=== PATIENT | male | born 1950 | race Hispanic/Latino ===

== ENCOUNTER 2017-07-25 03:23 | Emergency (ER) | payer MEDICARE ==
[2017-07-25] MEDS ORDERED: Clindamycin/D5W 900 mg/50 ml Premix Bag ONE (05:16)
[2017-07-25] MEDS ORDERED: Lidocaine 1% w/Epinephrine 1:100K 20 ML VIAL ONE (05:16)
== END 2017-07-25 06:37 | disposition home or self-care (01) ==
LOC: ERS 03:23
DX: L72.3 Sebaceous cyst (principal); I10 Essential (primary) hypertension; E11.9 Type 2 diabetes mellitus without complications
CPT/HCPCS: 10060; 96365; J2001; J3490

== ENCOUNTER 2017-11-20 00:09 | Emergency (ER) | payer MEDICARE | END 2017-11-20 00:33 | disposition home or self-care (01) | LOC: ERS 00:09 | DX: S01.311A Laceration without foreign body of right ear, initial encounter (principal); H60.11 Cellulitis of right external ear; E11.9 Type 2 diabetes mellitus without complications; I10 Essential (primary) hypertension; Z79.84 Long term (current) use of oral hypoglycemic drugs; Z79.899 Other long term (current) drug therapy; W26.9XXA Contact with unspecified sharp object(s), initial encounter | CPT/HCPCS: 99282 ==

== ENCOUNTER 2019-10-07 22:07 | Inpatient (IN) | payer MEDICARE ==
[~2019-10-07 22:07] MED LIST: Heparin 1,000 UNITS/ML VIAL ONE
[2019-10-07] MEDS ORDERED: Vancomycin 1 GM/200 ML BAG ONE (22:32)
[2019-10-07] MEDS ORDERED: Morphine 4 MG/ML VIAL ONE (22:32)
[2019-10-07] MEDS ORDERED: Ondansetron PF 4 MG/2 ML Vial ONE (22:32)
[2019-10-07] MEDS ORDERED: Cefepime 2 GM VIAL ONE (22:32)
[2019-10-07 23:09] LABS: Hemoglobin 10.6 g/dL (14.0-18.0); Mean Corpuscular HGB CONC 31.6 g/dL (32.0-36.0); Mean Corpuscular Hemoglobin 25.7 pg (27.0-31.0); Mean Corpuscular Volume 81.6 fL (78.0-98.0); Mean Platelet Volume 7.2 fL (7.4-10.4); Platelet Count 319 thou/uL (130-400); RBC Distribution Width 15.5 % (11.5-14.5); Red Blood Cell (RBC) Count 4.11 mill/uL (4.70-6.10); White Blood Cell (WBC) Count 23.5 thou/uL (4.8-10.8)
[2019-10-07 23:11] LABS: ALT (SGPT) 12 U/L (8-55); AST (SGOT) 13 U/L (5-34); Albumin 2.6 g/dL (3.4-4.8); Alkaline Phosphatase 183 U/L (40-110); Anion Gap 20 mmol/L (10-20); BUN (Urea Nitrogen) 63 mg/dL (8.4-25.7); Bilirubin, Total 2.8 mg/dL (0.2-1.2); Calc. Creatinine Clearance 0 mL/min (70-130); Calcium 8.4 mg/dL (7.8-10.44); Carbon Dioxide 28 mmol/L (23-31); Chloride 91 mmol/L (98-107); Estimated GFR-MDRD 38; Glucose 219 mg/dL (80-115); Potassium 3.5 mmol/L (3.5-5.1); Protein, Total 6.6 g/dL (5.8-8.1); Sodium 135 mmol/L (136-145)
[2019-10-07 23:23] LABS: Band 33 % (5-11); Lymphocytes 2 % (21-51); MDiff Complete? YES; Metamyelocyte 1 % (0-0); Neutrophil 64 % (42-75); Platelet Morphology Comment Appears Adequate
[2019-10-07] MEDS ORDERED: Dextrose 5% in Water 1,000 ML IV PRN (23:38)
[2019-10-07] MEDS ORDERED: Dextrose 50% Abboject 50 ML SYRINGE SLOW IVP PRN (23:38)
--- NOTE | 2019-10-07 23:47 | RAD ---
PORTABLE CHEST: 10/07/19 HISTORY: Fever. Heart size is within normal limits. There are atherosclerotic changes of the aorta. The lungs are mariana ar of any infiltrates. IMPRESSION: No active intrathoracic disease. POS: YON
--- NOTE | 2019-10-07 23:47 | RAD ---
LEFT FOOT THREE VIEWS: 10/07/19 HISTORY: Diabetic wound to foot. There is a wound present on the plantar aspect of the calcaneus. There appears to be some air tracki ng in the soft tissues along the lateral side of the fifth metatarsal. I do not see any definitive ev idence for osteomyelitis. IMPRESSION: Soft tissue swelling and wound on the plantar aspect of the foot. Some air is seen within the soft ti ssues along the lateral side of the foot at the level of the fifth metatarsal. POS: YON
[2019-10-07] MEDS ORDERED: Ondansetron PF 4 MG/2 ML Vial IVP PRN (23:49)
--- NOTE | 2019-10-08 00:45 | HP ---
CHIEF COMPLAINT: Back pain. HISTORY OF PRESENT ILLNESS: Mr. Laughlin is a 69-year-old male, with past medical history of diabetes mellitus, hypertension, and hyperlipidemia, presented to the emergency room with low back pain. This started last week. Patient was seen at [facility] three days ago for the same complaint and was diagnosed with muscle strain. Patient also stated that he has a diabetic wound to the left foot, which was present for the last 3 months. He has a Wound Care come to his house 3 times per week and they put a new dressing and on his wound yesterday. Patient denies fever, nausea, vomiting, chills, or shortness of breath. Workup in the emergency room,0 patient had a foul-smelling deep wounds, mainly involving the left foot 11 x 4 cm with surrounding erythema of the left foot and lower leg. Also, he has some redness over the right foot on the right leg. Lab work, patient was found to have leukocytosis with WBC count of 23,000 with 33 bands. Patient also was found to have elevated creatinine with a creatinine of 1.78. ESR is elevated at 110. CRP is elevated at 37. Septic workup in the emergency room, including blood cultures were done in the ED. Patient was started on IV antibiotics. Patient is being admitted to hospital for further management. PAST MEDICAL HISTORY: As mentioned above in history of present illness. SURGICAL HISTORY: Lesions removed from the head. SOCIAL HISTORY: Denies smoking, alcohol drinking, or drug abuse. FAMILY HISTORY: Mother had diabetes mellitus. ALLERGIES: ALLERGIC TO CLINDAMYCIN. HOME MEDICATIONS: Please see home medication reconciliation form for updated medications. REVIEW OF SYSTEMS: Review of 14 systems negative, except what is mentioned in history of present illness. PHYSICAL EXAMINATION: GENERAL: Patient is awake and alert, in mild distress. VITAL SIGNS: Blood pressure 140/78, respiratory rate is 24, temperature is 97.7, and oxygen saturation is 94% on room air. HEAD AND NECK: Normocephalic and atraumatic. Neck is supple. No JVD. CHEST: Fair bilateral air entry. HEART: S1, S2. Regular. ABDOMEN: Soft, nontender. Bowel sounds present. NEUROLOGIC: Awake, alert, and oriented x3. No focal deficits. PSYCH: Unable to assess. EXTREMITIES: Deep ulcer/wound, left foot plantar aspect 11 x 3 cm with surrounding erythema. Also, left lower leg erythema and right leg erythema in the right foot. GENITOURINARY: No suprapubic tenderness. No flank tenderness. SKIN: As mentioned above in the extremities description. LABORATORIES: As in HPI. IMAGING: X ray of the foot showed soft tissue swelling and wound on the plantar aspect of the foot. Some air is seen within the soft tissues along the lateral side of the foot and at the level of the fifth metatarsal. ASSESSMENT: 1. Sepsis. 2. Diabetic foot ulcer, infected. 3. Cellulitis of both legs. 4. Back pain, which was worked up in [facility] and was diagnosed with muscle strain. 5. Hypertension. 6. Hyperlipidemia. 7. Elevated creatinine. ?Acute/chronic kidney disease. PLAN: 1. Admit. 2. Septic workup, including blood cultures and wound cultures. 3. IV antibiotics. 4. IV fluids. 5. Monitor and control blood glucose, start the patient's sliding scale with insulin coverage. 6. Consult Wound Care. 7. Pain management. 8. IV fluids. 9. Monitor kidney function and urine output. 10. Reconcile home medications. 11. DVT prophylaxis appropriate. 12. Expected length of stay, 2 midnights or more. Job ID: [id number]
[2019-10-08] MEDS: Sodium Chloride 0.9% 1,000 ML IV SCH ×2 (01:36→11:17)
[2019-10-08] MEDS: metroNIDAZOLE 500 MG in Premix Bag 1 BAG IVPB SCH ×3 (01:36→17:57)
[2019-10-08 01:42] LABS: Lactic Acid 1.4 mmol/L (0.5-2.2)
[2019-10-08 01:49] VITALS: BMI 25.5
[2019-10-08] MEDS: Morphine 2 MG/ML SYRINGE SLOW IVP PRN ×3 (04:12→18:04)
[2019-10-08 05:24] LABS: Band 57 % (5-11); Hemoglobin 10.2 g/dL (14.0-18.0); Lymphocytes 4 % (21-51); MDiff Complete? YES; Mean Corpuscular HGB CONC 31.6 g/dL (32.0-36.0); Mean Corpuscular Hemoglobin 25.9 pg (27.0-31.0); Mean Corpuscular Volume 81.8 fL (78.0-98.0); Mean Platelet Volume 7.4 fL (7.4-10.4); Monocytes 1 % (0-10); Neutrophil 38 % (42-75); Platelet Count 305 thou/uL (130-400); Platelet Morphology Comment Appears Adequate; RBC Distribution Width 15.6 % (11.5-14.5); Red Blood Cell (RBC) Count 3.95 mill/uL (4.70-6.10); White Blood Cell (WBC) Count 21.8 thou/uL (4.8-10.8)
[2019-10-08 05:27] LABS: ALT (SGPT) 11 U/L (8-55); AST (SGOT) 14 U/L (5-34); Albumin 2.2 g/dL (3.4-4.8); Alkaline Phosphatase 146 U/L (40-110); Anion Gap 14 mmol/L (10-20); BUN (Urea Nitrogen) 52 mg/dL (8.4-25.7); Bilirubin, Total 2.3 mg/dL (0.2-1.2); Calc. Creatinine Clearance 57 mL/min (70-130); Calcium 8.1 mg/dL (7.8-10.44); Carbon Dioxide 28 mmol/L (23-31); Chloride 98 mmol/L (98-107); Estimated GFR-MDRD 54; Globulin 4.1 g/dL (2.4-3.5); Glucose 225 mg/dL (80-115); Potassium 3.2 mmol/L (3.5-5.1); Protein, Total 6.3 g/dL (5.8-8.1); Sodium 137 mmol/L (136-145)
[2019-10-08] MEDS ORDERED: Vancomycin HCl 1 GM in Sodium Chloride 0.9% 250 ML 300 ML IVPB SCH (09:00)
[2019-10-08] MEDS: Cefepime 1 GM in Sodium Chloride 0.9% 100 ML IVPB SCH ×2 (09:12→21:11)
[2019-10-08] MEDS: Heparin 5,000 UNITS/ML VIAL SC SCH ×2 (09:12→20:51)
[2019-10-08] MEDS: HumaLOG 300 UNITS/3 ML VIAL SC PRN ×2 (12:59→21:17)
[2019-10-08] MEDS ORDERED: Potassium Chloride 20 MEQ in Lactated Ringer's 1,000 ML IV SCH (13:15)
--- NOTE | 2019-10-08 13:15 | PDOC.HOSPP ---
- Subjective Encounter Date: 10/08/19 Encounter Time: 10:00 Subjective: lethargic but awakens to touch not fully oriented - Objective Vital Signs & Weight: Vital Signs (12 hours) Temp Pulse Resp BP Pulse Ox 10/08/19 10:12 97.6 F 89 16 109/65 92 L 10/08/19 07:36 97.7 F 86 16 116/72 95 10/08/19 03:33 97.6 F 90 18 151/81 H 97 10/08/19 01:51 95 10/08/19 01:48 98.1 F 89 20 148/84 H 95 Weight Weight 168 lb I&O: 10/07/19 10/08/19 10/09/19 06:59 06:59 06:59 Intake Total 700 100 Output Total 450 Balance 250 100 Result Diagrams: 10/08/19 04:31 10/08/19 04:31 Additional Labs: Accuchecks 10/08/19 10/08/19 12:13 05:42 POC Glucose 224 H 227 H Hospitalist ROS - Medication Medications: Active Medications Generic Name Dose Route Start Last Admin Trade Name Freq PRN Reason Stop Dose Admin Heparin Sodium (Porcine) 5,000 units 10/08/19 09:00 10/08/19 09:12 Heparin SC 5,000 units BID DARNELL Administration Metronidazole 500 mg/ Device 100 mls @ 100 mls/hr 10/08/19 02:00 10/08/19 09: 46 IVPB 100 mls 0200,1000,1800 DARNELL Administration Cefepime HCl 1 gm/ Sodium 100 mls @ 200 mls/hr 10/08/19 10:00 10/08/19 09:12 Chloride IVPB 100 mls 1000,2200 DARNELL Administration Insulin Human Lispro 0 units 10/07/19 23:38 10/08/19 12:59 Humalog SC 4 unit .MODERATE SLIDING SC PRN Administration Moderate Correctional Scale Morphine Sulfate 2 mg 10/07/19 23:48 10/08/19 09:26 Morphine SLOW IVP 2 mg Q4H PRN Administration Severe Pain (7-10) - Exam General Appearance: ill appearing Eye: PERRL, anicteric sclera ENT: no oropharyngeal lesions, dry oral mucosa Neck: supple, no JVD Heart: RRR, no murmur Respiratory: no wheezes, no rales Gastrointestinal: soft, non-tender, non-distended, normal bowel sounds Extremities: no cyanosis Extremities - other findings: left heel purulent ulcer with eschar, edema++ Neurological: cranial nerve grossly intact, no focal deficits Hosp A/P (1) Ulcer of left heel Code(s): L97.429 - NON-PRS CHRONIC ULCER OF LEFT HEEL AND MIDFOOT W UNSP SEVERT Status: Acute Qualifiers: Non-pressure ulcer stage: with necrosis of muscle Qualified Code(s): L97.423 - Non-pressure chronic ulcer of left heel and midfoot with necrosis of muscle (2) Sepsis Code(s): A41.9 - SEPSIS, UNSPECIFIED ORGANISM Status: Acute Qualifiers: Sepsis type: sepsis due to unspecified organism (3) DM type 2 (diabetes mellitus, type 2) Status: Chronic Qualifiers: Diabetes mellitus senior care insulin use: without supervisor long goods use (4) EVONNE (acute kidney injury) Code(s): N17.9 - ACUTE KIDNEY FAILURE, UNSPECIFIED Status: Acute (5) Dyslipidemia Code(s): E78.5 - HYPERLIPIDEMIA, UNSPECIFIED Status: Chronic (6) Moderate protein-calorie malnutrition Code(s): E44.0 - MODERATE PROTEIN-CALORIE MALNUTRITION Status: Chronic - Plan is on cefepime, vanc and flagyl iv fluids d/w , likely debridement/amputation in am has foul smelling necrotic ulcer left heel with severe sepsis wbc is 21k with 57% bands, alb is 2.2 hemostable prognosis guarded
--- NOTE | 2019-10-08 17:31 | CON ---
DATE OF CONSULTATION: HISTORY OF PRESENT ILLNESS: Elijah Laughlin is a 69-year-old male patient, lives at home with his girlfriend. He has insulin-dependent diabetes mellitus. He does not have a medication list to reconciliation yet. He was admitted yesterday from the ER with complaints of back pain. He had been seen at [facility] for this. He was discovered to have a left foot diabetic wound, septic. He has a heel ulceration extending down to the calcaneus with exposed calcaneus, gangrenous tissue extending up into the Achilles and into the forefoot plantar. He has a septic diabetic foot. He has remained afebrile. His white count was elevated at 23,000 with 33% bands; today, it is 21,000 with 37% bands. I have been asked to see him regarding the diabetic foot. He is n.p.o. The patient does smoke. MEDICATIONS: Medication list not reconciled, but he states he takes insulin at home. ALLERGIES: REPORTED CLINDAMYCIN. SOCIAL HISTORY: Tobacco use. Alcohol, none. Drug use, none. PAST MEDICAL HISTORY: Diabetes mellitus, hypertension. He states he has had a cardiac evaluation in the past, that was unremarkable. PAST SURGICAL HISTORY: Skin lesions removed. REVIEW OF SYSTEMS: Ten-point noncontributory. FAMILY HISTORY: Noncontributory. PHYSICAL EXAMINATION: VITAL SIGNS: 5 feet 8 inches, 168 pounds, 25 BMI. Temperature 97.6, heart rate 89, blood pressure 109/65. LUNGS: Clear to auscultation. CARDIAC: Regular rate and rhythm without murmur or gallop. ABDOMEN: Soft and nontender. EXTREMITIES: Palpable femoral and popliteal pulses. He has chronic venous stasis changes in right leg with cellulitis above the ankle. There was some blister in skin, which was removed, clear fluid beneath. Right foot is slightly edematous. Left foot, however, reveals foul-smelling open wound, plantar, extending down to the calcaneus with exposed irregular calcaneus bone. There is extension up into the Achilles area in the plantar foot. Foot is edematous with pitting edema. NEUROLOGIC: Intact. LYMPHATICS: Otherwise, no lymphadenopathy is significant. LABORATORY DATA: White count 21,000, hemoglobin 10.2. Potassium 3.2, sodium 137, BUN 52, creatinine 1.31, glucose 225. Hemoglobin A1c not ordered. ASSESSMENT AND PLAN: 1. Diabetic septic left foot. I would recommend guillotine amputation in the morning. We will restart his diabetic diet today. Keep him n.p.o. after midnight. Plan guillotine amputation tomorrow and formal [id number] amputation Wednesday. We would continue current intravenous antibiotics. Keep the pressure off his right heel. He needs a compressive dressing of his right leg; Ruddy wrap, foot to knee; washing the wound daily with soap and water. 2. Diabetes mellitus. 3. Hypertension. 4. The patient reports normal mobility, which I doubt. Physical Therapy evaluation. Job ID: [id number]
[2019-10-08] MEDS ORDERED: Vancomycin HCl 1.25 GM in Sodium Chloride 0.9% 250 ML 250 ML IVPB SCH (18:00)
[2019-10-08] MEDS ORDERED: traMADol HCl 50 MG TAB PO PRN (19:37)
[2019-10-08] MEDS ORDERED: Acetaminophen 500 MG TAB PO PRN (19:37)
[2019-10-08] MEDS ORDERED: Morphine 2 MG/ML SYRINGE SLOW IVP PRN (19:45)
[2019-10-08] MEDS ORDERED: Methocarbamol 500 MG TAB PO SCH (20:00)
[2019-10-08] MEDS: HYDROcodone/Acetaminophen 5/325 mg Tablet PO PRN (20:49)
[2019-10-09] MEDS: metroNIDAZOLE 500 MG in Premix Bag 1 BAG IVPB SCH ×2 (01:44→09:23)
[2019-10-09 05:13] LABS: Hemoglobin A1c 7.4 % (4.0-6.0)
[2019-10-09] MEDS: HYDROcodone/Acetaminophen 5/325 mg Tablet PO PRN (05:43)
[2019-10-09] MEDS: HumaLOG 300 UNITS/3 ML VIAL SC PRN ×3 (06:01→20:37)
[2019-10-09] MEDS ORDERED: Fentanyl 100 MCG/2 ML VIAL ONE ×4 (09:01→11:46)
[2019-10-09] MEDS ORDERED: PROPOFOL 200 MG/20 ML VIAL ONE (09:05)
[2019-10-09] MEDS ORDERED: PHENYLEPHRINE-NS 100 MCG/ML 10 ML SYRINGE ONE (09:05)
[2019-10-09] MEDS ORDERED: Succinylcholine Chloride 20 MG/ML 10 ml SYRINGE FS ONE (09:05)
[2019-10-09] MEDS ORDERED: diphenhydrAMINE 50 MG/ML VIAL ONE (09:05)
[2019-10-09] MEDS ORDERED: Dexamethasone 20 MG/5 ML VIAL ONE (09:05)
[2019-10-09] MEDS ORDERED: Ondansetron PF 4 MG/2 ML Vial ONE (09:05)
[2019-10-09] MEDS: Heparin 5,000 UNITS/ML VIAL SC SCH ×2 (09:22→20:37)
[2019-10-09] MEDS: Cefepime 1 GM in Sodium Chloride 0.9% 100 ML IVPB SCH (09:22)
[2019-10-09] MEDS ORDERED: Ondansetron HCl/PF 4 MG/2 ML Vial IVP PRN ×2 (10:52→11:36)
[2019-10-09] MEDS ORDERED: Naloxone HCl 0.4 mg/ml Vial IV PRN (11:36)
[2019-10-09] MEDS ORDERED: Promethazine HCl 25 MG/ML VIAL SLOW IVP PRN (11:36)
[2019-10-09] MEDS ORDERED: Promethazine HCl 25 MG/ML VIAL IM PRN ×2 (11:36)
[2019-10-09] MEDS ORDERED: diphenhydrAMINE 50 MG/ML VIAL IM PRN (11:36)
[2019-10-09] MEDS ORDERED: Zolpidem Tartrate 5 MG TAB PO PRN (11:36)
[2019-10-09] MEDS ORDERED: diphenhydrAMINE 50 MG/ML VIAL IVP PRN (11:36)
[2019-10-09] MEDS ORDERED: Ondansetron PF 4 MG/2 ML Vial IVP PRN (11:36)
[2019-10-09] MEDS ORDERED: diphenhydrAMINE 25 MG CAP PO PRN (11:36)
[2019-10-09] MEDS ORDERED: Communication Order-Pharmacy FS SCH (11:45)
--- NOTE | 2019-10-09 12:05 | OP ---
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 PROCEDURE PERFORMED: Left below-knee amputation. ANESTHESIA: General. DESCRIPTION OF PROCEDURE: The patient was taken to the operating room, where under general anesthesia, left lower extremity was prepared with ChloraPrep and draped in routine fashion. Incision was made for left below-knee amputation with a long posterior flap. Carried through the skin, subcutaneous tissue, and fascia dividing muscular layers with the cautery and vascular bundles between clamps, ligated with 2-0 Vicryl ties. Tibia transected with a bone cutter, bevelling anterior edge cephalad, smoothened the edge with a rasp after clearing the periosteum proximally. Fibula cut 1 or 2 inches above the cut edge of the tibia with a bone cutter. Muscular bundles divided with cautery. A vascular control gained with 2-0 Vicryl sutures and cautery. Wound irrigated. Fascia approximated with continuous suture of 2-0 Vicryl. Skin with fidel. Sterile dressing applied. The patient tolerated the procedure well. Job ID: [id number]
[2019-10-09 12:06] LABS: Anion Gap 12 mmol/L (10-20); BUN (Urea Nitrogen) 30 mg/dL (8.4-25.7); Calc. Creatinine Clearance 91 mL/min (70-130); Calcium 7.8 mg/dL (7.8-10.44); Carbon Dioxide 27 mmol/L (23-31); Chloride 104 mmol/L (98-107); Estimated GFR-MDRD Greater than 90; Glucose 168 mg/dL (80-115); Potassium 3.4 mmol/L (3.5-5.1); Sodium 140 mmol/L (136-145)
[2019-10-09] MEDS: Sodium Chloride 0.9% 1,000 ML IV SCH (12:27)
--- NOTE | 2019-10-09 14:08 | PDOC.HOSPP ---
- Subjective Encounter Date: 10/09/19 Subjective: S/P L BKA. Complained of pain. I educated the patient on using [employer] TECHNICIAN. - Objective Vital Signs & Weight: Vital Signs (12 hours) Temp Pulse Resp BP Pulse Ox 10/09/19 12:45 97.8 F 101 H 16 127/76 97 10/09/19 04:27 98.0 F 96 18 161/84 H 96 Weight Admit Weight 168 lb Weight 168 lb I&O: 10/08/19 10/09/19 10/10/19 06:59 06:59 06:59 Intake Total 700 1300 Output Total 450 1000 Balance 250 300 Result Diagrams: 10/08/19 04:31 10/09/19 11:39 Additional Labs: Accuchecks 10/09/19 10/09/19 10/08/19 08:20 05:35 21:20 POC Glucose 178 H 166 H 181 H 10/08/19 16:37 POC Glucose 153 H Hospitalist ROS - Medication Medications: Active Medications Generic Name Dose Route Start Last Admin Trade Name Freq PRN Reason Stop Dose Admin Hydrocodone Bitart/Acetaminophen 1 tab 10/08/19 19:38 10/09/19 05:43 [place] 5/325 PO 1 tab QID PRN Administration Pain Heparin Sodium (Porcine) 5,000 units 10/08/19 09:00 10/09/19 09:22 Heparin SC Not Given BID [facility] Vancomycin HCl 1.25 gm/ Sodium 250 mls @ 166.667 mls/hr 10/08/19 18:00 19:01 Chloride IVPB 10/11/19 08:00 250 mls 1800 DARNELL Administration Sodium Chloride 1,000 mls @ 25 mls/hr 10/09/19 11:15 10/09/19 12:27 Normal Saline 0.9% IV Not Given .Q24H [facility] Insulin Human Lispro 0 units 10/07/19 23:38 10/09/19 06:01 Humalog SC 2 unit .MODERATE SLIDING SC PRN Administration Moderate Correctional Scale - Exam General Appearance: awake alert Neck: supple, no JVD Heart: RRR, no murmur, no gallops, no rubs, normal peripheral pulses Respiratory: CTAB, no wheezes, no rales, no ronchi Gastrointestinal: soft, non-tender, non-distended Hosp A/P (1) Sepsis Code(s): A41.9 - SEPSIS, UNSPECIFIED ORGANISM Status: Acute Qualifiers: Sepsis type: sepsis due to unspecified organism (2) Ulcer of left heel Code(s): L97.429 - NON-PRS CHRONIC ULCER OF LEFT HEEL AND MIDFOOT W UNSP SEVERT Status: Acute Qualifiers: Non-pressure ulcer stage: with necrosis of muscle Qualified Code(s): L97.423 - Non-pressure chronic ulcer of left heel and midfoot with necrosis of muscle (3) DM type 2 (diabetes mellitus, type 2) Status: Chronic Qualifiers: Diabetes mellitus half-way insulin use: without long chain beamer use (4) Moderate protein-calorie malnutrition Code(s): E44.0 - MODERATE PROTEIN-CALORIE MALNUTRITION Status: Chronic - Plan Sepsis with staphylococcus aureus due to diabetic foot ulcer with gangrene and vasculopathy. On Vancomycin and Zosyn. S/P BKA POD0. Check echocardiogram. Continue insulin SSI.
[2019-10-09] MEDS: Piperacillin/Tazobactam 3.375 GM in Sodium Chloride 0.9% 100 ML IVPB SCH ×2 (15:45→20:36)
[2019-10-09] MEDS: Gabapentin 300 MG CAP PO SCH ×2 (15:46→20:37)
[2019-10-09 17:34] LABS: Vancomycin, Trough 9.3 ug/mL
[2019-10-09] MEDS ORDERED: Vancomycin HCl 1.75 GM in Sodium Chloride 0.9% 500 ML IVPB SCH (18:00)
[2019-10-10] MEDS: Piperacillin/Tazobactam 3.375 GM in Sodium Chloride 0.9% 100 ML IVPB SCH ×3 (03:12→14:57)
[2019-10-10 05:20] LABS: Band 17 % (5-11); Hemoglobin 7.5 g/dL (14.0-18.0); Lymphocytes 14 % (21-51); MDiff Complete? YES; Mean Corpuscular HGB CONC 31.1 g/dL (32.0-36.0); Mean Corpuscular Hemoglobin 25.9 pg (27.0-31.0); Mean Corpuscular Volume 83.1 fL (78.0-98.0); Mean Platelet Volume 6.9 fL (7.4-10.4); Monocytes 1 % (0-10); Neutrophil 68 % (42-75); Platelet Count 249 thou/uL (130-400); Platelet Morphology Comment Appears Adequate; RBC Distribution Width 15.8 % (11.5-14.5); White Blood Cell (WBC) Count 13.7 thou/uL (4.8-10.8)
[2019-10-10] MEDS: HumaLOG 300 UNITS/3 ML VIAL SC PRN ×4 (05:24→20:38)
[2019-10-10 05:29] LABS: Anion Gap 10 mmol/L (10-20); BUN (Urea Nitrogen) 36 mg/dL (8.4-25.7); Calc. Creatinine Clearance 87 mL/min (70-130); Calcium 7.4 mg/dL (7.8-10.44); Carbon Dioxide 28 mmol/L (23-31); Chloride 104 mmol/L (98-107); Estimated GFR-MDRD 88; Glucose 244 mg/dL (80-115); Potassium 3.7 mmol/L (3.5-5.1); Sodium 138 mmol/L (136-145)
[2019-10-10] MEDS: Heparin 5,000 UNITS/ML VIAL SC SCH ×2 (08:44→20:37)
[2019-10-10] MEDS: Gabapentin 300 MG CAP PO SCH ×3 (08:44→20:38)
[2019-10-10] MEDS ORDERED: Cyclobenzaprine 10 MG TAB PO PRN (11:25)
[2019-10-10] MEDS: Sodium Chloride 0.9% 1,000 ML IV SCH (11:34)
--- NOTE | 2019-10-10 12:09 | PRG ---
DATE OF SERVICE: 10/10/2019 SUBJECTIVE: Elijah Laughlin is doing well today. Status post amputation yesterday. OBJECTIVE: VITAL SIGNS: Temperature 98.3 degrees, pulse rate 84, blood pressure 155/81. LUNGS: Clear to auscultation. CARDIAC: Regular rate and rhythm. No murmur or gallop. ABDOMEN: Soft. LABORATORY DATA: Hemoglobin is 7.5. Basic metabolic profile normal. BUN 36. Cultures reveal Staph aureus bacteremia, 2 of 2. IMAGING STUDIES: Echocardiogram, 10/10/2019, 65%-69% ejection fraction, trace mitral regurgitation, mild tricuspid regurgitation. ASSESSMENT/PLAN: 1. Anemia. The patient is asymptomatic. Would follow. Would only transfuse if he is symptomatic. 2. Status post [id number] amputation. Dressing intact. We will plan dressing removal tomorrow. We will begin washing the stump with soap and water daily in the shower. Apply antibiotic ointment and Telfa and a stump rehabilitation nurse. He can transfer to rehab at any time. 3. Staphylococcus bacteremia. Infectious Disease consult, PICC line, intravenous antibiotics per medical discretion. 4. From a surgical standpoint, the patient could be transferred to rehab today or tomorrow. If he is here tomorrow, I will remove his dressing, dehisced wound. Job ID: [id number]
--- NOTE | 2019-10-10 18:07 | CON ---
DATE OF CONSULTATION: 10/10/2019 REASON FOR CONSULTATION: Bacteremia. HISTORY OF PRESENT ILLNESS: A 69-year-old with history of type 2 diabetes, hypertension, and hyperlipidemia, who developed a progressively worsening pain in the right hip area 3 days before admission. The patient went to [facility] and was released after diagnosis of muscles sprain, and then, he came back to [facility]. He also complained of a chronic left foot diabetic wound, which had been present for the prior 3 months and it has been managed with Home Health wound care. The patient denied any fever or headaches. No visual symptoms, sore throat, odynophagia, or dysphagia. He has intermittent coughing spells for the past 6 months. No sputum production. No dyspnea or chest pain. No abdominal pain. Able to urinate without difficulty. Initial findings with a temperature of 97.6 , O2 saturation of 97%, blood pressure 130/80, pulse 94. The exam demonstrated lower extremity edema with the ulcer in the left heel surrounding erythema and pitting edema. There were bullous lesions in both right and left lower extremities described by the ER physician. Other findings included a white cell count of 23,000, a hemoglobin 10.6, platelets 319 with 64% neutrophils and 33% bands. His creatinine was 1.78. Sodium 135, potassium 3.5, bilirubin 2.8, transaminases normal, alkaline phosphatase 183 with a CRP of 37.25, and albumin 2.6. The patient had 2 sets of blood cultures with methicillin-sensitive Staphylococcus aureus on admission. The patient had a foot x-ray on admission, which showed soft tissue swelling, some air in soft tissues , but no bony abnormalities noted. Surgical consult was obtained. There was evidence of penetration of the wound in the plantar surface towards the heel with bone exposure and penetration towards the ankle. So guillotine amputation was carried out of the left lower extremity. The patient currently is awake. REVIEW OF SYSTEMS: Ten-point review of system as above. PAST MEDICAL HISTORY: Includes type 2 diabetes, hyperlipidemia, hypertension, neuropathy, osteoarthrosis, venous insufficiency with stasis dermatitis changes , and onychomycosis. PAST SURGICAL HISTORY: Some skin lesions removed from his head. SOCIAL HISTORY: He used to work driving a truck in town. He lives with family in the area and never smoker, never drank alcoholic beverages. No drug use. FAMILY HISTORY: Diabetes mellitus type 2. ALLERGIES: CLINDAMYCIN. CURRENT MEDICATION LIST: 1. Flexeril. 2. Benadryl. 3. Fentanyl. 4. Gabapentin. 5. Insulin. 6. Narcan. 7. Zofran. 8. Zosyn. 9. Vancomycin. PHYSICAL EXAMINATION: VITAL SIGNS: T-max 98, blood pressure 150/80, pulse 84, respirations 20, O2 saturation 94% to 100%. SKIN: Shows the left guillotine/BKA site. The right leg with stasis dermatitis venous insufficiency changes, dermatosclerosis of the skin. HEENT: Pupils are equal. Oral cavity with numerous missing teeth, remainder ones with marked decay and gum disease. NECK: Supple. No jugular vein distention. No lymphadenopathy. LUNGS: Symmetric air entry. HEART: S1, S2. Regular rate. No S3 or S4. ABDOMEN: Soft. Not distended or tender. No ascites. No bladder distention. GENITAL: Normal. MUSCULOSKELETAL: He has moderate tenderness on palpation of the right hip area. Range of motion is also tender. Pulses are diminished in dorsalis pedis. Popliteal pulses are 1 to 2+. Capillary refill is normal. Onychomycosis or onychodystrophy in all toenails on the right side. He has interosseous muscle atrophy in the upper extremities. The index finger seems to have been shortened, I do not know if he had an amputation earlier in his life. NEUROLOGIC: He is awake and follows commands. Speech appears to be normal. Recollection is little bit impaired. LABORATORY DATA: White cell count is 23,000, now is at 13.7, hemoglobin 7.5, platelets 249 with 68% neutrophils, 17% bands, and the cultures as reported above. IMAGING STUDIES: The patient had an echocardiogram, which showed an EF 65%. The pathology of the amputation specimen with ischemic ulceration, skin and soft tissue margins viable and atherosclerosis. ASSESSMENT: 1. Type 2 diabetes; peripheral vascular disease chronic ulcer, left foot with aggressive penetration into the calcaneus and posterior ankle area; status post [id number] amputation, left side. 2. Venous insufficiency and stasis dermatitis on the right leg. 3. Pain in the right hip area, which seems to have been the original symptom that precipitated the evaluations at [facility] at [facility]. 4. Staphylococcus aureus bacteremia. DISCUSSION: Differential diagnosis includes aggressive inflammatory process the left heel with penetration of the blood stream by Staphylococcus aureus and then possible migration to the right hip area. Other sites of involvement are less likely, but not ruled out at this point in time. The patient will need protracted treatment with IV cefazolin or similar or maybe even Rocephin. MRI of the right hip/pelvis to evaluate for septic arthritis, osteomyelitis, bursitis or myositis of that area related to the bacteremia. If it is demonstrated that the patient has a complication in that site, then we may need a surgical intervention or not depending on findings. The duration of therapy will be anywhere from 2 to 4 weeks and even longer, if there is evidence of septic arthritis. Other sites of involvement including spine, lung, and endocardium are not apparent at this point in time. Job ID: [id number] [facility]
[2019-10-10] MEDS: fentaNYL Citrate/PF 2,000 MCG in Sodium Chloride 0.9% 60 ML IV PRN (18:28)
[2019-10-10] MEDS: CEFAZOLIN 2 GM in Premix Bag 1 BAG IVPB SCH (20:38)
--- NOTE | 2019-10-10 21:39 | PDOC.HOSPP ---
- Subjective Encounter Date: 10/10/19 Subjective: No new complaints. - Objective Vital Signs & Weight: Vital Signs (12 hours) Temp Pulse Resp BP Pulse Ox 10/10/19 19:12 98.2 F 95 16 165/78 H 98 10/10/19 17:24 98.3 F 76 20 179/90 H 96 10/10/19 11:08 98.3 F 84 20 155/81 H 94 L Weight Admit Weight 168 lb Weight 168 lb I&O: 10/09/19 10/10/19 10/11/19 06:59 06:59 06:59 Intake Total 1300 1000 3280 Output Total 1000 851 Balance 026 913 5043 Result Diagrams: 10/10/19 04:55 10/10/19 04:55 Additional Labs: Accuchecks 10/10/19 10/10/19 10/10/19 16:57 10:53 05:24 POC Glucose 266 H 293 H 248 H Hospitalist ROS - Medication Medications: Active Medications Generic Name Dose Route Start Last Admin Trade Name Freq PRN Reason Stop Dose Admin Hydrocodone Bitart/Acetaminophen 1 tab 10/08/19 19:38 10/09/19 05:43 [place] 5/325 PO 1 tab QID PRN Administration Pain Cyclobenzaprine HCl 10 mg 10/10/19 11:25 10/10/19 11:33 Flexeril PO 10 mg BIDPRN PRN Administration Muscle Spasm Gabapentin 300 mg 10/09/19 15:00 10/10/19 20:38 Neurontin PO 300 mg TID DARNELL Administration Heparin Sodium (Porcine) 5,000 units 10/08/19 09:00 10/10/19 20:37 Heparin SC 5,000 units BID DARNELL Administration Sodium Chloride 1,000 mls @ 25 mls/hr 10/09/19 11:15 10/10/19 11:34 Normal Saline 0.9% IV 1,000 mls .Q24H DARNELL Administration Fentanyl Citrate 2,000 mcg/ 100 mls @ 0 mls/hr 10/09/19 11:36 10/10/19 18:28 Sodium Chloride IV 100 mls INF PRN Administration Pain As Directed Cefazolin Sodium/Dextrose 2 gm 50 mls @ 100 mls/hr 10/10/19 22:00 10/10/19 20 :38 / Device IVPB 50 mls Q8HR DARNELL Administration Insulin Human Lispro 0 units 10/07/19 23:38 10/10/19 20:38 Humalog SC 4 unit .MODERATE SLIDING SC PRN Administration Moderate Correctional Scale - Exam General Appearance: awake alert ENT: normocephalic atraumatic Neck: supple, no JVD Heart: RRR, no murmur, no gallops, no rubs, normal peripheral pulses Respiratory: CTAB, no wheezes, no rales, no ronchi, normal chest expansion Gastrointestinal: soft, non-tender, non-distended, normal bowel sounds Hosp A/P (1) Sepsis Code(s): A41.9 - SEPSIS, UNSPECIFIED ORGANISM Status: Acute Qualifiers: Sepsis type: sepsis due to unspecified organism (2) Ulcer of left heel Code(s): L97.429 - NON-PRS CHRONIC ULCER OF LEFT HEEL AND MIDFOOT W UNSP SEVERT Status: Acute Qualifiers: Non-pressure ulcer stage: with necrosis of muscle Qualified Code(s): L97.423 - Non-pressure chronic ulcer of left heel and midfoot with necrosis of muscle (3) DM type 2 (diabetes mellitus, type 2) Status: Chronic Qualifiers: Diabetes mellitus intermediate insulin use: without long term care social worker use (4) Moderate protein-calorie malnutrition Code(s): E44.0 - MODERATE PROTEIN-CALORIE MALNUTRITION Status: Chronic - Plan Sepsis with staphylococcus aureus due to diabetic foot ulcer with gangrene and vasculopathy. Blood culture positive for MSSA. ID recommending MRI of the hip and pelvic area to rule out septic arthritis. Continue IV antibiotics. Echocardiogram did not show any evidence of vegetations. S/P BKA POD1.. Continue insulin SSI.
[2019-10-11 05:20] LABS: Anion Gap 11 mmol/L (10-20); BUN (Urea Nitrogen) 26 mg/dL (8.4-25.7); Calc. Creatinine Clearance 98 mL/min (70-130); Calcium 7.4 mg/dL (7.8-10.44); Carbon Dioxide 27 mmol/L (23-31); Chloride 99 mmol/L (98-107); Estimated GFR-MDRD Greater than 90; Glucose 222 mg/dL (80-115); Potassium 3.7 mmol/L (3.5-5.1); Sodium 133 mmol/L (136-145)
[2019-10-11] MEDS: HumaLOG 300 UNITS/3 ML VIAL SC PRN ×4 (05:36→20:19)
[2019-10-11] MEDS: CEFAZOLIN 2 GM in Premix Bag 1 BAG IVPB SCH ×3 (05:37→21:46)
[2019-10-11 06:09] LABS: Band 1 % (5-11); Hemoglobin 8.2 g/dL (14.0-18.0); Hypochromia SLIGHT = 6-15 cells (100X) (0-5/hpf); Lymphocytes 12 % (21-51); MDiff Complete? YES; Mean Corpuscular HGB CONC 33.3 g/dL (32.0-36.0); Mean Corpuscular Hemoglobin 27.2 pg (27.0-31.0); Mean Corpuscular Volume 81.8 fL (78.0-98.0); Mean Platelet Volume 6.8 fL (7.4-10.4); Neutrophil 87 % (42-75); Platelet Count 237 thou/uL (130-400); Platelet Morphology Comment Appears Adequate; RBC Distribution Width 15.5 % (11.5-14.5); Red Blood Cell (RBC) Count 2.99 mill/uL (4.70-6.10); White Blood Cell (WBC) Count 13.4 thou/uL (4.8-10.8)
[2019-10-11] MEDS: Heparin 5,000 UNITS/ML VIAL SC SCH ×2 (08:33→20:19)
[2019-10-11] MEDS: Gabapentin 300 MG CAP PO SCH ×3 (08:33→20:19)
[2019-10-11] MEDS ORDERED: Magnevist 469MG/ML 20 ML VIAL ONE (10:52)
--- NOTE | 2019-10-11 10:56 | PRG ---
DATE OF SERVICE: 10/11/2019 Mr. 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 His wound looks good. [facility] are at bedside to place a stump fisher eel spear. MRI has been performed, results are pending. Dr. Healy is seeing him regarding his Staphylococcus bacteremia. The patient will need a PICC line for IV antibiotics. The patient can be discharged to rehab at anytime from a surgical standpoint. I need to see him in my office in 2 to 3 weeks for staple removal. Stump can be washed daily with soap and water with shower chair and an antibiotic ointment, Telfa, and stump fisher eel spear applied. He can be transferred to rehab at anytime. Job ID: [id number]
--- NOTE | 2019-10-11 11:05 | MRI ---
RIGHT HIP MRI WITH AND WITHOUT IV CONTRAST: Date: 10/11/2019 HISTORY: Right hip pain, bacteremia. History of diabetes mellitus. FINDINGS: Multiplanar, multisequence MRI examination of the right hip is performed. There is fairly extensive b ilateral subcutaneous edema and swelling, evidence for anasarca. These changes are slightly more prom inent on the right side with some diffuse scattered mostly intermuscular and well as minimal intramus cular fluid or edematous changes, including the gluteal muscles, tensor fasciae latae, rectus femoris muscle, lower iliopsoas muscle, and upper vastus lateralis muscles. In the lateral aspect of the inf erior gluteus maximum muscle, there is somewhat more intense focal area of T2 hyperintensity with cici e minimal associated enhancement and a very thin somewhat C-shaped fluid collection which maximally i s 0.4 x 0.8 x 1.9 cm in size, which could possibly represent a small focus of abscess or myonecrosis. There does appear to be some abnormal signal associated with the anterior labrum, evidence for possi ble degenerative-type tear. Considerable motion artifact lowers the sensitivity of this study. No malini dence for abnormal marrow signal to suggest fracture, avascular necrosis, stress injury, or osteomyel itis. Common hamstring insertion tendinopathy. IMPRESSION: 1. Fairly extensive bilateral subcutaneous fat stranding, as well as some intermuscular and intramus cular fluid, edema, and fat stranding noted bilaterally, somewhat worse on the right side. 2. Small focus of an irregular, somewhat C-shaped fluid collection in the lateral aspect of the righ t gluteus verona muscle, possibly a small focal area of myonecrosis or small abscess. 3. Small symmetric bilateral hip joint fluid. 4. Evidence for probable degenerative-type tear involving the anterior right hip acetabular labrum. 5. Other findings as above. POS: RRE
[2019-10-11] MEDS: Sodium Chloride 0.9% 1,000 ML IV SCH (11:15)
--- NOTE | 2019-10-11 13:56 | EKG ---
Test Reason : Blood Pressure : / mmHG Vent. Rate : 088 BPM Atrial Rate : 088 BPM P-R Int : 128 ms QRS Dur : 086 ms QT Int : 400 ms P-R-T Axes : 025 000 035 degrees QTc Int : 484 ms Normal sinus rhythm Prolonged QT Abnormal ECG Confirmed by ANJU ROSENBAUM DO ([id number]), assignment editor TAMMIE PERDOMO ([id number]) on 10/11/2019 1:55:43 PM Referred By: Confirmed By:ANJU ROSENBAUM DO
--- NOTE | 2019-10-11 14:12 | SPC ---
Sonographic guided left upper extremity PICC placement HISTORY: Sepsis. After explaining the procedure and answering all questions, left upper extremity was prepped and drap ed in usual sterile fashion. Sterile technique, buffered local anesthesia, sonographic guidance, and a 22-gauge needle were used to carefully access the left basilic vein. Standard technique was use d to place the tip of a 4 [place] single lumen PICC so that its tip lies at the level of the superior vena cava. The catheter was flushed and secured externally. Patient tolerated the procedure well and was returned in unchanged condition. Fluoroscopy time 0 seconds. IMPRESSION : Left upper extremity PICC is ready for use.
--- NOTE | 2019-10-11 15:13 | PDOC.HOSPP ---
- Subjective Encounter Date: 10/11/19 Subjective: No new events overnight. - Objective Vital Signs & Weight: Vital Signs (12 hours) Temp Pulse Resp BP Pulse Ox 10/11/19 11:23 97.9 F 95 18 151/78 H 94 L 10/11/19 07:53 97.4 F L 77 14 146/77 H 95 10/11/19 03:21 99.2 F 87 16 167/83 H 94 L Weight Admit Weight 168 lb Weight 168 lb I&O: 10/10/19 10/11/19 10/12/19 06:59 06:59 06:59 Intake Total 1000 3930 Output Total 851 Balance 149 3930 Result Diagrams: 10/11/19 04:49 10/11/19 04:49 Additional Labs: Accuchecks 10/11/19 10/11/19 10/10/19 11:26 05:37 19:59 POC Glucose 202 H 278 H 225 H 10/10/19 16:57 POC Glucose 266 H Hospitalist ROS - Medication Medications: Active Medications Generic Name Dose Route Start Last Admin Trade Name Freq PRN Reason Stop Dose Admin Hydrocodone Bitart/Acetaminophen 1 tab 10/08/19 19:38 10/09/19 05:43 [place] 5/325 PO 1 tab QID PRN Administration Pain Cyclobenzaprine HCl 10 mg 10/10/19 11:25 10/10/19 11:33 Flexeril PO 10 mg BIDPRN PRN Administration Muscle Spasm Gabapentin 300 mg 10/09/19 15:00 10/11/19 14:46 Neurontin PO 300 mg TID DARNELL Administration Heparin Sodium (Porcine) 5,000 units 10/08/19 09:00 10/11/19 08:33 Heparin SC 5,000 units BID DARNELL Administration Sodium Chloride 1,000 mls @ 25 mls/hr 10/09/19 11:15 10/11/19 11:15 Normal Saline 0.9% IV 1,000 mls .Q24H DARNELL Administration Fentanyl Citrate 2,000 mcg/ 100 mls @ 0 mls/hr 10/09/19 11:36 10/10/19 18:28 Sodium Chloride IV 100 mls INF PRN Administration Pain As Directed Cefazolin Sodium/Dextrose 2 gm 50 mls @ 100 mls/hr 10/10/19 22:00 10/11/19 14 :46 / Device IVPB 50 mls Q8HR DARNELL Administration Insulin Human Lispro 0 units 10/07/19 23:38 10/11/19 13:06 Humalog SC 4 unit .MODERATE SLIDING SC PRN Administration Moderate Correctional Scale - Exam ENT: normocephalic atraumatic Neck: supple, no JVD Heart: RRR Respiratory: CTAB Gastrointestinal: soft, non-tender, non-distended Hosp A/P (1) Sepsis Code(s): A41.9 - SEPSIS, UNSPECIFIED ORGANISM Status: Acute Qualifiers: Sepsis type: sepsis due to unspecified organism (2) Ulcer of left heel Code(s): L97.429 - NON-PRS CHRONIC ULCER OF LEFT HEEL AND MIDFOOT W UNSP SEVERT Status: Acute Qualifiers: Non-pressure ulcer stage: with necrosis of muscle Qualified Code(s): L97.423 - Non-pressure chronic ulcer of left heel and midfoot with necrosis of muscle (3) DM type 2 (diabetes mellitus, type 2) Status: Chronic Qualifiers: Diabetes mellitus ferry terminal agent insulin use: without [facility] use (4) Moderate protein-calorie malnutrition Code(s): E44.0 - MODERATE PROTEIN-CALORIE MALNUTRITION Status: Chronic - Plan Sepsis with staphylococcus aureus due to diabetic foot ulcer with gangrene and vasculopathy. Blood culture positive for MSSA. PICC in place. Awaiting ID recommendations for outpatient ABX before DC to rehab. Echocardiogram did not show any evidence of vegetations. S/P BKA POD2. Continue insulin SSI.
[2019-10-11] MEDS: Triple Antibiotic Ointment 30 GM TUBE TOP SCH (19:39)
[2019-10-11] MEDS ORDERED: Labetalol HCl 100 MG/20 ML VIAL SLOW IVP PRN (21:14)
[2019-10-11] MEDS ORDERED: hydrALAZINE 20 MG/ML VIAL SLOW IVP PRN (21:14)
[2019-10-12 03:00] LABS: Anion Gap 7 mmol/L (10-20); BUN (Urea Nitrogen) 13 mg/dL (8.4-25.7); Calc. Creatinine Clearance 106 mL/min (70-130); Calcium 7.4 mg/dL (7.8-10.44); Carbon Dioxide 31 mmol/L (23-31); Chloride 97 mmol/L (98-107); Estimated GFR-MDRD Greater than 90; Glucose 231 mg/dL (80-115); Potassium 3.4 mmol/L (3.5-5.1); Sodium 132 mmol/L (136-145)
[2019-10-12 03:24] LABS: Band 10 % (5-11); Hemoglobin 7.4 g/dL (14.0-18.0); Lymphocytes 14 % (21-51); MDiff Complete? YES; Mean Corpuscular HGB CONC 32.3 g/dL (32.0-36.0); Mean Corpuscular Hemoglobin 26.3 pg (27.0-31.0); Mean Corpuscular Volume 81.3 fL (78.0-98.0); Mean Platelet Volume 7.2 fL (7.4-10.4); Monocytes 5 % (0-10); Neutrophil 71 % (42-75); Platelet Count 222 thou/uL (130-400); Platelet Morphology Comment Appears Adequate; RBC Distribution Width 15.4 % (11.5-14.5); Red Blood Cell (RBC) Count 2.83 mill/uL (4.70-6.10); White Blood Cell (WBC) Count 15.7 thou/uL (4.8-10.8)
[2019-10-12] MEDS: fentaNYL Citrate/PF 2,000 MCG in Sodium Chloride 0.9% 60 ML IV PRN (03:48)
[2019-10-12] MEDS: CEFAZOLIN 2 GM in Premix Bag 1 BAG IVPB SCH ×2 (05:13→14:35)
[2019-10-12] MEDS: HumaLOG 300 UNITS/3 ML VIAL SC PRN ×3 (05:13→16:08)
[2019-10-12] MEDS: Heparin 5,000 UNITS/ML VIAL SC SCH (08:33)
[2019-10-12] MEDS: Gabapentin 300 MG CAP PO SCH ×2 (08:34→14:36)
[2019-10-12] MEDS: Triple Antibiotic Ointment 30 GM TUBE TOP SCH (08:34)
--- NOTE | 2019-10-12 12:23 | DIS ---
DATE OF ADMISSION: 10/07/2019 DATE OF DISCHARGE: 10/12/2019 DISCHARGE DIAGNOSES: 1. Sepsis. 2. Diabetic ulcer of the left heel. 3. Diabetes mellitus type 2. 4. Moderate protein calorie malnutrition. 5. Methicillin-sensitive Staphylococcus aureus bacteremia. 6. Acute kidney injury. 7. Dyslipidemia. DISCHARGE MEDICATIONS: 1. Cefazolin 2 g IV q.8 hours until November 08, 2019. 2. Lisinopril 20 mg orally daily. 3. Gabapentin 300 mg orally three times daily. 4. Tramadol 50 mg orally q.6 hours as needed for pain for 7 days. HISTORY OF PRESENT ILLNESS AND HOSPITAL COURSE: The patient is a 69-year-old male with past medical history of type 2 diabetes mellitus, hypertension, hyperlipidemia, and peripheral neuropathy, who was admitted to the hospital with sepsis and gangrenous wound in his left heel. Surgical consultation was obtained and the patient underwent left below-knee amputation. He was started on IV antibiotics empirically and blood cultures were obtained. The results showed growth of methicillin-sensitive Staphylococcus aureus. His IV antibiotics were changed to IV cefazolin per ID and echocardiogram was performed and did not show any evidence of vegetations. ID recommended continuing IVs of cefazolin as noted above until November 08, 2019. As far as his diabetes, we recommend management with insulin glargine 25 units daily. Continue outpatient wound care as recommended by Surgical Team. Job ID: [id number]
[2019-10-12] MEDS: Sodium Chloride 0.9% 1,000 ML IV SCH (14:36)
[2019-10-12 16:12] VITALS: BP 184/97; TEMP 98.3
== END 2019-10-12 16:12 | DRG 854 ==
LOC: ERS 22:07 → SURG B 23:40
PROVIDERS: ADMIT Internal Medicine; ATTEND Internal Medicine
PROC: 0Y6J0Z1 Detachment at Left Lower Leg, High, Open Approach (ICD-10-PCS; principal; 2019-10-09)
PROC: 02HV33Z Insertion of Infusion Device into Superior Vena Cava, Percutaneous Approach (ICD-10-PCS; 2019-10-11)
PROC: B518ZZA Fluoroscopy of Superior Vena Cava, Guidance (ICD-10-PCS; 2019-10-11)
DX: A41.01 Sepsis due to Methicillin susceptible Staphylococcus aureus (principal); L03.116 Cellulitis of left lower limb; L97.423 Non-pressure chronic ulcer of left heel and midfoot with necrosis of muscle; N17.9 Acute kidney failure, unspecified; E44.0 Moderate protein-calorie malnutrition; E11.52 Type 2 diabetes mellitus with diabetic peripheral angiopathy with gangrene; I96 Gangrene, not elsewhere classified; L03.115 Cellulitis of right lower limb; R65.20 Severe sepsis without septic shock; I10 Essential (primary) hypertension; E78.5 Hyperlipidemia, unspecified; E11.621 Type 2 diabetes mellitus with foot ulcer; S39.012A Strain of muscle, fascia and tendon of lower back, initial encounter; X58.XXXA Exposure to other specified factors, initial encounter; D64.9 Anemia, unspecified; E11.40 Type 2 diabetes mellitus with diabetic neuropathy, unspecified; I87.2 Venous insufficiency (chronic) (peripheral); Z88.1 Allergy status to other antibiotic agents; Z68.25 Body mass index [BMI] 25.0-25.9, adult
CPT/HCPCS: 36415; 36416; 36569; 71045; 80048; 80053; 80202; 83036; 83605; 85007; 85025; 85027; 85652; 86140; 87040; 87077; 87149; 87186; 88307; 93005; 93306; 96365; 96367; 96375; A9579; C1751; J0690; J0692; J1100; J1200; J1644; J2270; J2405; J2543; J2704; J3010; J3370; J3480; J3490; J7030; J7050; J7120

== ENCOUNTER 2021-07-08 14:04 | Outpatient (CLI) | payer MEDICARE ==
[2021-07-09 12:50] LABS: SARS-CoV-2 PCR by NAA Not Detected (NotDetected)
== END 2021-07-08 14:05 | disposition home or self-care (01) ==
LOC: LABBT 14:04
PROVIDERS: ATTEND Ophthalmology Retina Specialist
DX: Z01.812 Encounter for preprocedural laboratory examination (principal); Z20.822 Contact with and (suspected) exposure to COVID-19
CPT/HCPCS: U0003; U0005

== ENCOUNTER 2021-07-21 15:34 | Outpatient (CLI) | payer MEDICARE ==
[2021-07-22 18:37] LABS: SARS-CoV-2 PCR by NAA Not Detected (NotDetected)
== END 2021-07-21 15:35 | disposition home or self-care (01) ==
LOC: LABBT 15:34
PROVIDERS: ATTEND Ophthalmology Retina Specialist
DX: Z01.812 Encounter for preprocedural laboratory examination (principal); H43.12 Vitreous hemorrhage, left eye; Z20.822 Contact with and (suspected) exposure to COVID-19
CPT/HCPCS: U0003; U0005

== ENCOUNTER 2021-07-24 05:37 | Day surgery (SDC) | payer MEDICARE ==
[2021-07-23 08:53] VITALS: BMI 26.6
[2021-07-24] MEDS ORDERED: EPINEPHrine 0.3 MG, Dextrose 50% 3 ML in Ophthalmic Irrigation Solution 500 ML IRR SCH (06:00)
[2021-07-24] MEDS ORDERED: Phenylephrine 2.5% Ophth Soln 5 ML BOT ONE (06:05)
[2021-07-24] MEDS ORDERED: Cyclopentolate 1% Opth Drop 2 ML BOT ONE (06:05)
[2021-07-24] MEDS ORDERED: Midazolam HCl 2 mg/2 ml Vial ONE (06:37)
[2021-07-24] MEDS ORDERED: Fentanyl 100 MCG/2 ML VIAL ONE (06:37)
[2021-07-24] MEDS ORDERED: Maxitrol 0.1% Opth Oint 3.5 GM TUBE ONE (07:12)
[2021-07-24] MEDS ORDERED: CEFAZOLIN 1 GM VIAL ONE (07:12)
[2021-07-24] MEDS ORDERED: Lidocaine 4% PF 5 ML AMP ONE (07:12)
[2021-07-24] MEDS ORDERED: Triamcinolone 40 MG/ML VIAL ONE (07:12)
[2021-07-24] MEDS ORDERED: Bupivacaine PF 0.75% SDV 10 ML ONE (07:12)
[2021-07-24] MEDS ORDERED: PROPOFOL 200 MG/20 ML VIAL ONE (07:12)
[2021-07-24] MEDS ORDERED: Lidocaine 1% PF 5 ML VIAL ONE (07:12)
== END 2021-07-24 09:30 | disposition home or self-care (01) ==
LOC: SDC 05:37
PROVIDERS: ATTEND Ophthalmology Retina Specialist
PROC: 08T53ZZ Resection of Left Vitreous, Percutaneous Approach (ICD-10-PCS; principal; 2021-07-24)
PROC: 08NF3ZZ Release Left Retina, Percutaneous Approach (ICD-10-PCS; 2021-07-24)
DX: H43.12 Vitreous hemorrhage, left eye (principal); H15.8 Other disorders of sclera; H35.89 Other specified retinal disorders; Z79.84 Long term (current) use of oral hypoglycemic drugs; Z79.899 Other long term (current) drug therapy; Z88.1 Allergy status to other antibiotic agents
CPT/HCPCS: J0171; J0690; J2250; J2704; J3010; J3301; J3490

== ENCOUNTER 2021-11-05 06:01 | Inpatient (IN) | payer MEDICARE ==
[2021-11-05 07:10] LABS: #Eosinphils 0.1 thou/uL (0.0-0.7); #Lymphocytes 1.2 thou/uL (1.20-3.40); #Monocytes 0.5 thou/uL (0.11-0.59); #Neutrophils 7.4 thou/uL (1.40-6.50); %Basophils 0.3 % (0.0-1.0); %Lymphocytes 13.3 % (21.0-51.0); %Monocytes 5.4 % (0.0-10.0); Hemoglobin 7.8 g/dL (14.0-18.0); Mean Corpuscular HGB CONC 30.7 g/dL (32.0-36.0); Mean Corpuscular Hemoglobin 29.1 pg (27.0-31.0); Mean Corpuscular Volume 94.6 fL (78.0-98.0); Mean Platelet Volume 6.2 fL (7.4-10.4); Platelet Count 462 thou/uL (130-400); RBC Distribution Width 16.7 % (11.5-14.5); Red Blood Cell (RBC) Count 2.67 mill/uL (4.70-6.10); White Blood Cell (WBC) Count 9.2 thou/uL (4.8-10.8)
[2021-11-05] MEDS ORDERED: Cefepime 2 GM VIAL ONE (07:30)
[2021-11-05] MEDS ORDERED: Vancomycin 1 GM/200 ML BAG ONE (07:30)
[2021-11-05 07:33] LABS: ALT (SGPT) Less than 7 U/L (8-55); AST (SGOT) 27 U/L (5-34); Albumin 2.2 g/dL (3.4-4.8); Alkaline Phosphatase 78 U/L (40-110); Anion Gap 12 mmol/L (10-20); BUN (Urea Nitrogen) 56 mg/dL (8.4-25.7); Bilirubin, Total 0.2 mg/dL (0.2-1.2); CK (CPK) 13 U/L (30-200); Calc. Creatinine Clearance 0 mL/min (70-130); Calcium 8.7 mg/dL (7.8-10.44); Carbon Dioxide 29 mmol/L (23-31); Chloride 107 mmol/L (98-107); Globulin 5.7 g/dL (2.4-3.5); Glucose 184 mg/dL (83-110); Protein, Total 7.9 g/dL (5.8-8.1); Sodium 144 mmol/L (136-145)
[2021-11-05] MEDS ORDERED: Senokot S 8.6-50 MG TAB PO PRN (10:11)
[2021-11-05] MEDS ORDERED: Ondansetron PF 4 MG/2 ML Vial IVP PRN (10:11)
[2021-11-05 10:30] LABS: SARS-CoV-2 NAA Rapid Test Not Detected (NotDetected)
[2021-11-05] MEDS ORDERED: Dextrose 5% in Water 1,000 ML IV PRN (12:10)
[2021-11-05] MEDS ORDERED: Dextrose 50% Abboject 50 ML SYRINGE SLOW IVP PRN (12:10)
[2021-11-05] MEDS: Sodium Chloride 0.9% 1,000 ML IV SCH ×2 (12:50→23:12)
[2021-11-05 15:13] VITALS: BMI 21.2
[2021-11-05 18:15] LABS: Glucose 199 mg/dL (83-110)
[2021-11-05] MEDS ORDERED: VANCOMYCIN 1.25 GM/250 ML BAG 1.25 GM in Premix Bag 1 BAG IVPB SCH (20:00)
[2021-11-05] MEDS: Cefepime 1 GM in Sodium Chloride 0.9% 100 ML IVPB SCH (20:14)
[2021-11-05] MEDS: Vancomycin HCl 1.25 GM in Sodium Chloride 0.9% 250 ML 250 ML IVPB SCH (20:51)
[2021-11-05] MEDS ORDERED: Tamsulosin HCl 0.4 MG CAP FS SCH (21:00)
[2021-11-05] MEDS: Insulin Regular 300 UNITS/3 ML VIAL SC PRN (21:38)
[2021-11-06 00:35] LABS: Glucose 159 mg/dL (83-110)
[2021-11-06] MEDS: Guaifenesin DM 100-10/5 ML UDCUP PER TUBE PRN ×2 (03:35→09:10)
[2021-11-06] MEDS: Sodium Chloride 0.9% 1,000 ML IV SCH (03:35)
[2021-11-06] MEDS: Acetaminophen 325 MG TAB PER TUBE PRN ×2 (03:56→09:51)
[2021-11-06 06:13] LABS: #Eosinphils 0.1 thou/uL (0.0-0.7); #Monocytes 0.5 thou/uL (0.11-0.59); #Neutrophils 7.4 thou/uL (1.40-6.50); %Basophils 0.3 % (0.0-1.0); %Eosinophils 1.3 % (0.0-10.0); %Lymphocytes 10.8 % (21.0-51.0); %Monocytes 5.5 % (0.0-10.0); %Neutrophils 82.1 % (42.0-75.0); Hemoglobin 7.7 g/dL (14.0-18.0); Mean Corpuscular HGB CONC 30.2 g/dL (32.0-36.0); Mean Corpuscular Hemoglobin 28.8 pg (27.0-31.0); Mean Corpuscular Volume 95.6 fL (78.0-98.0); Mean Platelet Volume 6.2 fL (7.4-10.4); Platelet Count 426 thou/uL (130-400); RBC Distribution Width 16.6 % (11.5-14.5); Red Blood Cell (RBC) Count 2.67 mill/uL (4.70-6.10)
[2021-11-06 06:30] LABS: Glucose 211 mg/dL (83-110)
[2021-11-06] MEDS: Insulin Regular 300 UNITS/3 ML VIAL SC PRN (06:31)
[2021-11-06 06:36] LABS: Phosphorus 1.6 mg/dL (2.3-4.7)
[2021-11-06 06:37] LABS: ALT (SGPT) Less than 7 U/L (8-55); AST (SGOT) 25 U/L (5-34); Albumin 2.1 g/dL (3.4-4.8); Alkaline Phosphatase 81 U/L (40-110); Anion Gap 11 mmol/L (10-20); BUN (Urea Nitrogen) 43 mg/dL (8.4-25.7); Bilirubin, Total 0.3 mg/dL (0.2-1.2); Calc. Creatinine Clearance 103 mL/min (70-130); Calcium 8.5 mg/dL (7.8-10.44); Carbon Dioxide 28 mmol/L (23-31); Chloride 110 mmol/L (98-107); Globulin 5.7 g/dL (2.4-3.5); Glucose 213 mg/dL (83-110); Potassium 3.8 mmol/L (3.5-5.1); Protein, Total 7.8 g/dL (5.8-8.1); Sodium 145 mmol/L (136-145)
[2021-11-06 08:40] LABS: Vancomycin, Trough 20.7 ug/mL
[2021-11-06] MEDS: Lisinopril 20 MG TAB PER TUBE SCH (09:09)
[2021-11-06] MEDS: Amlodipine 10 MG TAB PER TUBE SCH (09:10)
[2021-11-06] MEDS: Enoxaparin Sodium 30 MG/0.3 ML SYRINGE SC SCH (09:10)
[2021-11-06] MEDS: Doxazosin 2 MG TAB PER TUBE SCH (09:10)
[2021-11-06] MEDS: Cefepime 1 GM in Sodium Chloride 0.9% 100 ML IVPB SCH ×2 (09:10→19:53)
[2021-11-06] MEDS ORDERED: Methocarbamol 500 MG TAB PO SCH (10:30)
[2021-11-06] MEDS: Vancomycin HCl 1.25 GM in Sodium Chloride 0.9% 250 ML 250 ML IVPB SCH (12:22)
[2021-11-06] MEDS: Vancomycin 1 GM in Premix Bag 1 BAG IVPB SCH ×2 (12:28→19:53)
[2021-11-06] MEDS ORDERED: Potassium Phosphate 15 MMOL in Sodium Chloride 0.9% 250 ML 250 ML IVPB SCH (13:00)
[2021-11-07] MEDS: Guaifenesin DM 100-10/5 ML UDCUP PER TUBE PRN (03:03)
[2021-11-07] MEDS: Sodium Chloride 0.9% 1,000 ML IV SCH ×2 (03:07→17:04)
[2021-11-07] MEDS: HumaLOG 300 UNITS/3 ML VIAL SC PRN (05:27)
[2021-11-07 08:23] LABS: Vancomycin, Trough 30.3 ug/mL
[2021-11-07] MEDS: Amlodipine 10 MG TAB PER TUBE SCH (08:31)
[2021-11-07] MEDS: Cefepime 1 GM in Sodium Chloride 0.9% 100 ML IVPB SCH ×2 (08:31→21:32)
[2021-11-07] MEDS: Enoxaparin Sodium 30 MG/0.3 ML SYRINGE SC SCH (08:31)
[2021-11-07] MEDS: Lisinopril 20 MG TAB PER TUBE SCH (08:31)
[2021-11-07] MEDS: Doxazosin 2 MG TAB PER TUBE SCH (08:32)
[2021-11-07] MEDS ORDERED: Vancomycin 1 GM in Premix Bag 1 BAG IVPB SCH (08:45)
[2021-11-07] MEDS ORDERED: Vancomycin 1 GM in Admixture Fee 1 EACH IVPB SCH (12:00)
[2021-11-07 19:24] LABS: Bacteria/HPF None Seen HPF (None Seen); Bilirubin Negative (Negative); Blood, Urine Negative (Negative); Clarity Clear (Clear); Glucose, Urine (Dipstick) Normal (Negative); Ketone, Urine Negative (Negative); Leukocyte Negative Leu/uL (Negative); Nitrite Negative (Negative); Protein, Urine (Dipstick) 50 mg/dL (Neg-Trace); RBC/HPF 0-3 HPF (0-3); Specific Gravity, Urine 1.015 (1.002-1.036); Squamous Epithelial 0-3 HPF (0-3); Urobilinogen Normal mg/dL (Less than 2); WBC/HPF 0-3 HPF (0-3)
[2021-11-07 20:46] LABS: Vancomycin, Random 21.2 ug/mL (See Comment)
[2021-11-08] MEDS: Guaifenesin DM 100-10/5 ML UDCUP PER TUBE PRN (01:32)
[2021-11-08] MEDS: Acetaminophen 325 MG TAB PER TUBE PRN (01:33)
[2021-11-08] MEDS: Sodium Chloride 0.9% 1,000 ML IV SCH ×3 (05:56→21:24)
[2021-11-08] MEDS ORDERED: Vancomycin HCl 500 MG in Sodium Chloride 0.9% 100 ML IVPB SCH (06:00)
[2021-11-08 06:19] LABS: Hemoglobin 7.1 g/dL (14.0-18.0); Mean Corpuscular HGB CONC 32.1 g/dL (32.0-36.0); Mean Corpuscular Hemoglobin 29.8 pg (27.0-31.0); Mean Corpuscular Volume 92.9 fL (78.0-98.0); Platelet Count 350 thou/uL (130-400); RBC Distribution Width 16.7 % (11.5-14.5); Red Blood Cell (RBC) Count 2.38 mill/uL (4.70-6.10); White Blood Cell (WBC) Count 7.6 thou/uL (4.8-10.8)
[2021-11-08 06:35] LABS: Anion Gap 10 mmol/L (10-20); BUN (Urea Nitrogen) 21 mg/dL (8.4-25.7); Calc. Creatinine Clearance 117 mL/min (70-130); Calcium 7.7 mg/dL (7.8-10.44); Carbon Dioxide 27 mmol/L (23-31); Chloride 111 mmol/L (98-107); Glucose 126 mg/dL (83-110); Potassium 3.4 mmol/L (3.5-5.1); Sodium 145 mmol/L (136-145)
[2021-11-08] MEDS ORDERED: Potassium Chloride 20 MEQ TAB PO SCH (07:45)
[2021-11-08] MEDS: Lisinopril 20 MG TAB PER TUBE SCH (09:16)
[2021-11-08] MEDS: Cefepime 1 GM in Sodium Chloride 0.9% 100 ML IVPB SCH ×2 (09:16→21:25)
[2021-11-08] MEDS: Doxazosin 2 MG TAB PER TUBE SCH (09:16)
[2021-11-08] MEDS: Enoxaparin Sodium 30 MG/0.3 ML SYRINGE SC SCH (09:16)
[2021-11-08] MEDS: Amlodipine 10 MG TAB PER TUBE SCH (09:16)
[2021-11-08 13:46] LABS: Hemoglobin 7.2 g/dL (14.0-18.0)
[2021-11-09 04:48] LABS: Hemoglobin 7.6 g/dL (14.0-18.0); Mean Corpuscular HGB CONC 30.7 g/dL (32.0-36.0); Mean Corpuscular Volume 94.3 fL (78.0-98.0); Platelet Count 384 thou/uL (130-400); RBC Distribution Width 16.4 % (11.5-14.5)
[2021-11-09 05:10] LABS: Anion Gap 12 mmol/L (10-20); BUN (Urea Nitrogen) 19 mg/dL (8.4-25.7); Calc. Creatinine Clearance 109 mL/min (70-130); Calcium 7.8 mg/dL (7.8-10.44); Carbon Dioxide 22 mmol/L (23-31); Chloride 110 mmol/L (98-107); Glucose 193 mg/dL (83-110); Potassium 3.7 mmol/L (3.5-5.1); Sodium 140 mmol/L (136-145)
[2021-11-09 05:38] LABS: Vancomycin, Random 14.5 ug/mL (See Comment)
[2021-11-09] MEDS: HumaLOG 300 UNITS/3 ML VIAL SC PRN (05:51)
[2021-11-09] MEDS ORDERED: Vancomycin 1 GM in Premix Bag 1 BAG IVPB SCH (08:15)
[2021-11-09] MEDS: Acetaminophen 325 MG TAB PER TUBE PRN ×2 (08:46→20:23)
[2021-11-09] MEDS: Amlodipine 10 MG TAB PER TUBE SCH (08:46)
[2021-11-09] MEDS: Lisinopril 20 MG TAB PER TUBE SCH (08:46)
[2021-11-09] MEDS: Enoxaparin Sodium 30 MG/0.3 ML SYRINGE SC SCH (08:47)
[2021-11-09] MEDS: Doxazosin 2 MG TAB PER TUBE SCH (08:47)
[2021-11-09] MEDS: Cefepime 1 GM in Sodium Chloride 0.9% 100 ML IVPB SCH ×2 (08:47→20:22)
[2021-11-09] MEDS: Sodium Chloride 0.9% 1,000 ML IV SCH (20:22)
[2021-11-09] MEDS: Guaifenesin DM 100-10/5 ML UDCUP PER TUBE PRN (20:24)
[2021-11-10] MEDS: HumaLOG 300 UNITS/3 ML VIAL SC PRN ×2 (00:59→06:16)
[2021-11-10] MEDS: Acetaminophen 325 MG TAB PER TUBE PRN ×3 (03:45→20:41)
[2021-11-10 05:49] LABS: Hemoglobin 7.2 g/dL (14.0-18.0); Mean Corpuscular HGB CONC 26.7 g/dL (32.0-36.0); Mean Corpuscular Hemoglobin 21.8 pg (27.0-31.0); Mean Corpuscular Volume 81.4 fL (78.0-98.0); Mean Platelet Volume 2.7 fL (7.4-10.4); Platelet Count 369 thou/uL (130-400); RBC Distribution Width 38.7 % (11.5-14.5); Red Blood Cell (RBC) Count 3.29 mill/uL (4.70-6.10)
[2021-11-10 06:07] LABS: Calc. Creatinine Clearance 107 mL/min (70-130)
[2021-11-10 08:23] LABS: Vancomycin, Random 15.8 ug/mL (See Comment)
[2021-11-10] MEDS: Enoxaparin Sodium 40 MG/0.4 ML SYRINGE SC SCH (09:27)
[2021-11-10] MEDS: Cefepime 1 GM in Sodium Chloride 0.9% 100 ML IVPB SCH ×2 (09:27→20:41)
[2021-11-10] MEDS: Lisinopril 20 MG TAB PER TUBE SCH (09:27)
[2021-11-10] MEDS: Amlodipine 10 MG TAB PER TUBE SCH (09:27)
[2021-11-10] MEDS: Doxazosin 2 MG TAB PER TUBE SCH (09:29)
[2021-11-10] MEDS: Guaifenesin DM 100-10/5 ML UDCUP PER TUBE PRN (09:47)
[2021-11-10] MEDS ORDERED: Methocarbamol 500 MG TAB PO PRN (11:13)
[2021-11-10] MEDS ORDERED: Methocarbamol 500 MG TAB PO SCH (11:15)
[2021-11-10] MEDS ORDERED: Vancomycin 1 GM in Premix Bag 1 BAG IVPB SCH (12:00)
[2021-11-11] MEDS: Cefepime 1 GM in Sodium Chloride 0.9% 100 ML IVPB SCH (08:51)
[2021-11-11] MEDS: Enoxaparin Sodium 40 MG/0.4 ML SYRINGE SC SCH (08:52)
[2021-11-11] MEDS: Acetaminophen 325 MG TAB PER TUBE PRN (08:52)
[2021-11-11] MEDS: Amlodipine 10 MG TAB PER TUBE SCH (08:52)
[2021-11-11] MEDS: Lisinopril 20 MG TAB PER TUBE SCH (08:52)
[2021-11-11] MEDS: Doxazosin 2 MG TAB PER TUBE SCH (08:52)
[2021-11-11 12:11] VITALS: BP 138/71; TEMP 98.9
== END 2021-11-11 13:45 | DRG 204 ==
LOC: ERS 06:01 → SUATTDRO 06:01 → T4-A 08:33 → INTOOBSV 08:33 → OBSVTOIN 11-06 16:15
PROVIDERS: ADMIT Internal Medicine; ATTEND Internal Medicine
DX: R06.03 Acute respiratory distress (principal); G93.41 Metabolic encephalopathy; L89.154 Pressure ulcer of sacral region, stage 4; L89.894 Pressure ulcer of other site, stage 4; R78.81 Bacteremia; E44.0 Moderate protein-calorie malnutrition; J98.11 Atelectasis; Z20.822 Contact with and (suspected) exposure to COVID-19; E87.6 Hypokalemia; E83.39 Other disorders of phosphorus metabolism; E11.51 Type 2 diabetes mellitus with diabetic peripheral angiopathy without gangrene; L89.610 Pressure ulcer of right heel, unstageable; D64.9 Anemia, unspecified; B95.61 Methicillin susceptible Staphylococcus aureus infection as the cause of diseases classified elsewhere; Z68.21 Body mass index [BMI] 21.0-21.9, adult; Z89.512 Acquired absence of left leg below knee; Z88.1 Allergy status to other antibiotic agents; Z79.899 Other long term (current) drug therapy; Z79.84 Long term (current) use of oral hypoglycemic drugs; Z93.1 Gastrostomy status
CPT/HCPCS: 36415; 36416; 70450; 71045; 80048; 80053; 80202; 81001; 82140; 82550; 82565; 83605; 83735; 83880; 84100; 84145; 84484; 85025; 85027; 86850; 86900; 86901; 87040; 93005; 96365; 96366; 96367; 96372; 96375; 96376; G0378; J0692; J1650; J1815; J3370; J3490; J7050; U0002